=== PATIENT | female | born 1990 | race Caucasian/White ===

== ENCOUNTER 2016-11-13 14:54 | Emergency (ER) | payer OTHER ==
[~2016-11-13 14:54] MED LIST: COLACE 100MG C100 MG PO; IBUPROFEN600 MG PO; NORCO 5-325 TA1 EACH PO
[2016-11-13 15:24] LABS: HEMOGLOBIN 12.3 gm/dl (12.3-15.3); RED BLOOD COUNT 4.35 M/UL (4.00-5.10); WHITE BLOOD COUNT 13.8 K/UL (4.5-11.0)
[2016-11-13 15:29] LABS: BUN/CREATININE RATIO 19 (0-10)
== END 2016-11-13 19:14 | disposition home or self-care (01) ==
LOC: ER1 14:54
DX: N13.2 Hydronephrosis with renal and ureteral calculous obstruction (principal); N76.0 Acute vaginitis; B96.89 Other specified bacterial agents as the cause of diseases classified elsewhere; Z87.891 Personal history of nicotine dependence
CPT/HCPCS: 36415; 80053; 81001; 82150; 83690; 84703; 85025; 87086; 87210; 96374; 96375; 96376; 99284; J1885; J2270; J2405; J7030; J7050; Q9962